=== PATIENT | female | born 1945 | race Caucasian/White ===

== ENCOUNTER → 2018-05-29 13:33 | Outpatient (CLI) | payer MEDICARE, OTHER, SELFPAY ==
--- NOTE | 2018-05-29 | DI.MRI.S_ITS ---
PROCEDURE: MR KNEE RT WO CON INDICATIONS: PRIMARY OSTEOARTHRITIS OF RIGHT KNEE TECHNIQUE: Noncontrast sagittal PD fast spin echo and T2 fast spin echo with fat saturation, sagittal 3-D FLASH with fat saturation; coronal T1 spin echo and PD fast spin echo with fat saturation, and axial PD fast spin echo with fat saturation through the knee. COMPARISON: None. FINDINGS: Image quality: Excellent. Menisci: Lateral meniscus appears intact although internal signal change suggests excellent degeneration. Medial meniscal tear involving the posterior root, posterior horn and body, with near-complete extrusion. Cruciate ligaments: The anterior demonstrates internal signal change and striated appearance suggestive of mucoid degeneration versus low grade chronic sprain. The posterior cruciate ligament appears intact. Medial structures: The medial collateral ligament appears intact. The posterior oblique ligament, semimembranosus tendon insertions, oblique popliteal ligament, and meniscocapsular junction appear intact. Visualized portions of the pes anserinus tendons appear normal. No abnormal bursal fluid. Lateral structures: The lateral collateral ligament, long and short heads of the biceps femoris tendon appear intact. The popliteus tendon appears normal; the popliteofibular ligament appears intact. The posterosuperior and anteroinferior popliteomeniscal fascicles appear intact. The arcuate and fabellofibular ligaments appear intact, on either side of the lateral inferior geniculate artery. Iliotibial band appears normal. Anterior structures: Mild distal quadriceps tendinopathy. The patellar tendon appears intact although there is adjacent superficial infrapatellar subcutaneous fluid. There is lateral patellar tilt. No femoral trochlear dysplasia or ventral trochlear prominence. No edema in the infrapatellar fat pad. Bones and cartilage: No bone marrow contusions or fractures Within the medial compartment, full-thickness femoral tibial articular cartilage loss is seen with subchondral cystic change and edema. There is spurring. Within the lateral compartment, no focal articular cartilage defect is identified. Within the patellofemoral compartment, there is diffuse surface fraying and partial-thickness loss of the patellar articular cartilage. Signal change and surface fraying of the femoral trochlear articular cartilage noted. There is also diffuse partial-thickness loss of the posterior tibial cartilage of the medial and lateral femoral condyles as seen on axial images. Joint space: Large joint effusion is present. No intra-articular loose bodies identified. There is a Morrissey's cyst which measures 4.9 cm in the cephalocaudad dimension. IMPRESSION: Medial meniscal cyst involving the posterior root, horn and body with near-complete extrusion. Lateral meniscus myxoid degeneration. Partial age indeterminate rupture versus mucoid degeneration of the anterior cruciate ligament. Please correlate to clinical exam findings. Degenerative joint disease as above, most pronounced in the medial compartment. Lateral patellar tilt. Mild distal quadriceps tendinopathy. Large joint effusion. Morrissey's cyst. Dictated by: Scooby Santos M.D. on 05/29/2018 at 14:29 Approved by: Scooby Santos M.D. on 05/29/2018 at 14:35
== END ==
PROVIDERS: PCP Family Medicine; Visit Provider Orthopaedic Surgery
DX: M17.11 Unilateral primary osteoarthritis, right knee (principal); M23.021 Cystic meniscus, posterior horn of medial meniscus, right knee; M23.300 Other meniscus derangements, unspecified lateral meniscus, right knee; M25.461 Effusion, right knee; M71.21 Synovial cyst of popliteal space [Baker], right knee; M22.8X1 Other disorders of patella, right knee
CPT/HCPCS: 73721

== ENCOUNTER → 2018-07-25 11:32 | Outpatient (CLI) | payer MEDICARE, OTHER, SELFPAY ==
[2018-07-25 12:24] LABS: Bacteria Urine None Seen; RBC Urine None Seen (0-5/HPF); WBC Urine None Seen (0-5/HPF)
[2018-07-25 12:48] LABS: Add Manual Diff / Slide Review NO; Basophils Percent Auto 0.7 % (0-2); Eosinophils Percent Auto 5.4 % (2-4); Hemoglobin 8.1 g/dL (12.0-16.0); Lymphocytes Percent Auto 15.8 % (25-40); Mean Corpuscular HGB Conc 33.8 % (30-36); Mean Corpuscular Volume 94.4 fL (80-100); Monocytes Percent Auto 6.8 % (3-14); Neutrophils Absolute Auto 5700 /uL (3000-5900); Neutrophils Percent Auto 71.3 % (50-75); Platelet Count 213 X10^3/uL (150-400); Red Blood Cell Count 2.55 X10^6/uL (4.0-5.2); Red Cell Distribution Width 15.5 % (11.6-14.8); White Blood Cell Count 7.9 X10^3/uL (4.5-11.0)
[2018-07-25 12:49] LABS: Hemoglobin A1C% w Est Avg Glu 6.8 % (4.0-6.0)
[2018-07-25 12:55] LABS: Appearance Urine UA SL CLOUDY; Bilirubin Urine UA NEGATIVE (NEGATIVE); Color Urine UA YELLOW; Glucose Urine UA NEGATIVE (Normal); Ketones Urine UA NEGATIVE (NEGATIVE); Leukocyte Esterase Urine UA NEGATIVE (NEGATIVE); Nitrite Urine UA Negative (Negative); Occult Blood Urine UA NEGATIVE (Negative); Protein Urine UA NEGATIVE (Negative); Urobilinogen Urine UA 0.2 E.U./dL (0.2)
[2018-07-25 13:14] LABS: Culture Indicated Urine Cult Not Indicated; Squamous Epithelial Cell Urine 1-5 /HPF
[2018-07-25 13:30] LABS: Alanine Aminotransferase 37 IU/L (9-52); Albumin 3.7 g/dL (3.5-5.0); Albumin Globulin Ratio 1.3 (1.0-2.8); Alkaline Phosphatase 78 U/L (38-126); Aspartate Aminotransferase 23 IU/L (14-36); BUN Creatinine Ratio 25.5 (6-22); Bilirubin Total 0.1 mg/dL (0.2-1.3); Blood Urea Nitrogen 74 mg/dL (7-17); Calcium 9.8 mg/dL (8.4-10.2); Carbon Dioxide 19 mmol/L (22-32); Chloride 107 mmol/L (98-107); Globulin 2.9 g/dL (1.7-4.1); Glucose 99 mg/dL (80-110); HEMOLYSIS < 15 (0-50); Sodium 138 mmol/L (137-145); Total Protein 6.6 g/dL (6.3-8.2)
[2018-07-25 13:43] LABS: Potassium 6.5 mmol/L (3.4-5.1)
== END ==
PROVIDERS: PCP Family Medicine; Visit Provider Orthopaedic Surgery
DX: Z01.818 Encounter for other preprocedural examination (principal); Z01.812 Encounter for preprocedural laboratory examination; N39.9 Disorder of urinary system, unspecified; R73.09 Other abnormal glucose
CPT/HCPCS: 36415; 80053; 81001; 83036; 85025